=== PATIENT | female | born 1975 | race American Indian/Alaskan Native ===

== ENCOUNTER 2017-06-27 17:46 | Emergency (ER) | payer SELFPAY ==
[2017-06-27] MEDS ORDERED: MOTRIN PO ONE (19:59)
--- NOTE | 2017-06-27 19:59 | Emergency Department Report ---
- General Chief Complaint: Upper Respiratory Infection Stated Complaint: SINUS INFECTION Time Seen by Provider: 06/27/17 19:27 Source: patient Mode of arrival: Ambulatory Limitations: No Limitations - History of Present Illness Initial Comments: sinus congestion bilat ear pain x 1 week with noc fever , no wheezing no stridor MD Complaint: fever, nasal congestion, sinus pain Onset/Timin -: week(s) Severity: moderate Severity scale (0 -10): 5 Quality: sharp Consistency: constant Worsens With: nothing Associated Symptoms: fever, chills, rhinorrhea, nasal congestion, sore throat, cough. denies: myalgias, diaphoresis, headache, chest pain, shortness of breath , abdominal pain, nausea, vomiting, diarrhea, dysuria, rash, confusion, right sweats, weight loss, epistaxis, hoarseness, ear pain, other Treatments Prior to Arrival: none - Related Data Previous Rx's Medication Instructions Recorded Last Taken Type Amoxicillin/K Clav Tab [Augmentin 1 tab PO Q12HR #20 tab 06/27/17 Unknown Rx 875 mg] Benzonatate [Tessalon Perles] 100 mg PO Q8HR PRN #30 capsule 06/27/17 Unknown Rx Ibuprofen [Motrin 800 MG tab] 800 mg PO Q8HR PRN #30 tablet 06/27/17 Unknown Rx Oxymetazoline 0.05% [Afrin] 1 spray NS BID #1 bottle 06/27/17 Unknown Rx Allergies Allergy/AdvReac Type Severity Reaction Status Date / Time No Known Allergies Allergy Unverified 06/27/17 18:00 ED Review of Systems ROS: Stated complaint: SINUS INFECTION Other details as noted in HPI Constitutional: denies: chills, fever Eyes: denies: eye pain, eye discharge, vision change ENT: ear pain, throat pain, congestion Respiratory: cough. denies: shortness of breath, wheezing Cardiovascular: denies: chest pain, palpitations Endocrine: no symptoms reported Gastrointestinal: denies: abdominal pain, nausea, diarrhea Genitourinary: denies: urgency, dysuria, discharge Musculoskeletal: denies: back pain, joint swelling, arthralgia Skin: as per HPI Neurological: as per HPI Psychiatric: denies: anxiety, depression Hematological/Lymphatic: denies: easy bleeding, easy bruising ED Past Medical Hx - Past Medical History Hx Hypertension: Yes (NO MEDS X > 2 YEARS) - Surgical History Additional Surgical History: TUBAL LIGATION - Social History Smoking Status: Never Smoker Substance Use Type: Alcohol - Medications Home Medications: Home Medications Medication Instructions Recorded Confirmed Last Taken Type Amoxicillin/K Clav Tab [Augmentin 1 tab PO Q12HR #20 tab 06/27/17 Unknown Rx 875 mg] Benzonatate [Tessalon Perles] 100 mg PO Q8HR PRN #30 capsule 06/27/17 Unknown Rx Ibuprofen [Motrin 800 MG tab] 800 mg PO Q8HR PRN #30 tablet 06/27/17 Unknown Rx Oxymetazoline 0.05% [Afrin] 1 spray NS BID #1 bottle 06/27/17 Unknown Rx ED Physical Exam - General Limitations: No Limitations General appearance: alert, in no apparent distress - Head Head exam: Present: atraumatic, normocephalic - Eye Eye exam: Present: normal appearance - Expanded ENT Exam Expanded TM/Canal exam: Erythema: Right TM, Left TM, Effusion: Right TM, Left TM, Canal Tenderness: Right TM, Left TM Mouth exam: Present: normal external inspection Teeth exam: Present: normal inspection Throat exam: Positive: tonsillar erythema. Negative: tonsillomegaly, tonsillar exudate, R peritonsillar mass, L peritonsillar mass - Neck Neck exam: Present: normal inspection - Respiratory Respiratory exam: Present: normal lung sounds bilaterally. Absent: respiratory distress - Cardiovascular Cardiovascular Exam: Present: regular rate, normal rhythm. Absent: systolic murmur, diastolic murmur, rubs, gallop - GI/Abdominal GI/Abdominal exam: Present: soft, normal bowel sounds - Rectal Rectal exam: Present: deferred - Extremities Exam Extremities exam: Present: normal inspection - Back Exam Back exam: Present: normal inspection, full ROM. Absent: tenderness, CVA tenderness (R), CVA tenderness (L), muscle spasm, paraspinal tenderness, vertebral tenderness, rash noted - Neurological Exam Neurological exam: Present: alert, oriented X3 - Psychiatric Psychiatric exam: Present: normal affect, normal mood - Skin Skin exam: Present: warm, dry, intact, normal color. Absent: rash ED Course Vital Signs 06/27/17 18:02 Temperature 98.9 F Pulse Rate 102 H Respiratory 18 Rate Blood Pressure 174/104 O2 Sat by Pulse 98 Oximetry ED Medical Decision Making - Medical Decision Making pt is a 41 y/o aaf with hx of sinus infections who presents for bilat earache, fever, and sinus pain congestion and pain x 1 week , symptoms exacerbated by lying down symptoms improved by nothing, exam: Bilat TM erythema and with efusions, nose: bilat turbinate erythema swelling yellow post nasal drip, sinus bilat frontal a maxillary sinus pain to palpation, pharynx: moderate erythema no exudate no lesions uvula midline no stridor, lungs clear bilat all lobes no wheezing plan: augmentin , afrin nasal spray, ibuprofen, tessalon pearls, pt will follow up with primary care doctor if symptoms not improved in 1 week, pt verbalized agreement and understanding if discharge instructions. repeat v/s hr : 94, resp: 16, temp: 98.4, bp: 171/105 pt is rx amlodipine has not taken today pt denies cp no sob no dizziness no lightheadness no pt is a/o x 3 ambulatory gait steady with nad , pt advised to take medication up arrival to home. Critical care attestation.: If time is entered above; I have spent that time in minutes in the direct care of this critically ill patient, excluding procedure time. ED Disposition Clinical Impression: Sinusitis Qualifiers: Sinusitis location: maxillary Chronicity: acute Recurrence: non-recurrent Qualified Code(s): J01.00 - Acute maxillary sinusitis, unspecified Disposition: DC- TO HOME OR SELFCARE Is pt being admited?: No Does the pt Need Aspirin: No Condition: Good Instructions: Otitis Media (ED), Sinusitis (ED) Prescriptions: Amoxicillin/K Clav Tab [Augmentin 875 mg] 1 tab PO Q12HR #20 tab Benzonatate [Tessalon Perles] 100 mg PO Q8HR PRN #30 capsule PRN Reason: Cough Ibuprofen [Motrin 800 MG tab] 800 mg PO Q8HR PRN #30 tablet PRN Reason: pain / fever Oxymetazoline 0.05% [Afrin] 1 spray NS BID #1 bottle Referrals: PRIMARY CARE, [Primary Care Provider] - 3-5 Days Forms: Work/School Release Form(ED) Time of Disposition: 20:21
[2017-06-27 20:18] VITALS: BP 172/115
== END 2017-06-27 20:28 | disposition home or self-care (01) ==
LOC: ED 17:46
DX: J01.00 Acute maxillary sinusitis, unspecified (principal); I10 Essential (primary) hypertension
CPT/HCPCS: 99282

== ENCOUNTER 2019-12-04 15:57 | Emergency (ER) | payer SELFPAY | END 2019-12-04 19:30 | disposition left against medical advice (07) | LOC: ED 15:57 | DX: K08.89 Other specified disorders of teeth and supporting structures (principal); Z53.21 Procedure and treatment not carried out due to patient leaving prior to being seen by health care provider ==